=== PATIENT | female | born 2000 | race Caucasian/White ===

== ENCOUNTER → 2021-01-29 | Outpatient (CLI) | payer OTHER | LOC: US 01-14 10:30 | DX: R10.11 Right upper quadrant pain (principal); R10.12 Left upper quadrant pain; R63.0 Anorexia; R11.0 Nausea | CPT/HCPCS: 76700 ==

== ENCOUNTER → 2021-05-26 | Outpatient (CLI) | payer OTHER ==
[2021-05-26 17:31] LABS: HEMOGLOBIN 13.8 gm/dl (12.3-15.3); RED BLOOD COUNT 4.58 M/UL (4.00-5.10); WHITE BLOOD COUNT 9.2 K/UL (4.5-11.0)
[2021-05-26 18:03] LABS: BUN/CREATININE RATIO 12 (0-10)
[2021-05-28 08:13] LABS: VITAMIN D, 25-HYDROXY 28.7 ng/mL (30.0-100.0)
== END ==
LOC: LAB 16:15
PROVIDERS: Family Medicine
DX: R22.2 Localized swelling, mass and lump, trunk (principal); R53.83 Other fatigue; I10 Essential (primary) hypertension; Z82.69 Family history of other diseases of the musculoskeletal system and connective tissue
CPT/HCPCS: 36415; 71046; 80053; 80061; 82607; 84443; 85027; 86038

== ENCOUNTER → 2021-06-03 | Outpatient (CLI) | payer OTHER ==
[2021-06-03 11:33] LABS: BUN/CREATININE RATIO 11 (0-10)
== END ==
LOC: LAB 10:31
PROVIDERS: Family Medicine
DX: E87.6 Hypokalemia (principal)
CPT/HCPCS: 36415; 80048

== ENCOUNTER → 2021-06-03 | Outpatient (CLI) | payer OTHER | LOC: US 09:12 → KOH-I 09:12 → US 13:30 | DX: N64.4 Mastodynia (principal); R22.2 Localized swelling, mass and lump, trunk | CPT/HCPCS: 71250; 76641-RT ==